=== PATIENT | female | born 2000 | race Caucasian/White ===

== ENCOUNTER 2024-05-12 10:28 | Emergency (ER) | payer OTHER ==
--- NOTE | 2024-05-12 10:46 | ED ---
Nausea/Vomiting/Diarrhea HPI - General Chief complaint: Nausea/Vomiting/Diarrhea Stated complaint: Vomiting-Preg. unsure how far Time Seen by Provider: 05/12/24 10:40 Source: patient, RN notes reviewed Mode of arrival: ambulatory Limitations: no limitations - History of Present Illness Initial comments: This is a 23-year-old female presents emergency department chief complaint of abdominal cramping, nausea and vomiting. Patient states that she had a positive at-home test on 04/22/2024. She is through the past few weeks she has been experiencing, vomiting, fatigue, intermittent abdominal cramping. Patient states that she has not sought out medical care since the time of her at-home positive test. She denies vaginal bleeding or discharge. She denies hematemesis, dysuria, increase in urinary frequency or urgency. Patient states this is her first . States that she would not like to continue gestation for this . - Related Data Allergies Allergy/AdvReac Type Severity Reaction Status Date / Time No Known Allergies Allergy Verified 05/12/24 10:40 Review of Systems ROS Statement: Those systems with pertinent positive or pertinent negative responses have been documented in the HPI. ROS Other: All systems not noted in ROS Statement are negative. Past Medical History Past Medical History: No Reported History Past Surgical History: No Surgical Hx Reported Past Psychological History: Anxiety, Depression Smoking Status: Current every day smoker Past Alcohol Use History: None Reported Past Drug Use History: None Reported General Exam Limitations: no limitations General appearance: alert, in no apparent distress Head exam: Present: atraumatic, normocephalic, normal inspection Eye exam: Present: normal appearance, PERRL, EOMI. Absent: scleral icterus, conjunctival injection, periorbital swelling ENT exam: Present: normal exam, mucous membranes moist Neck exam: Present: normal inspection. Absent: tenderness, meningismus, lymphadenopathy Respiratory exam: Present: normal lung sounds bilaterally. Absent: respiratory distress, wheezes, rales, rhonchi, stridor Cardiovascular Exam: Present: regular rate, normal rhythm, normal heart sounds. Absent: systolic murmur, diastolic murmur, rubs, gallop, clicks GI/Abdominal exam: Present: soft, tenderness (suprapubic), normal bowel sounds. Absent: distended, guarding, rebound, rigid Extremities exam: Present: normal inspection, full ROM, normal capillary refill. Absent: tenderness, pedal edema, joint swelling, calf tenderness Back exam: Present: normal inspection Neurological exam: Present: alert, oriented X3, CN II-XII intact Psychiatric exam: Present: normal affect, normal mood Skin exam: Present: warm, dry, intact, normal color. Absent: rash Course Vital Signs 05/12/24 05/12/24 10:36 13:41 Temperature 98.2 F 97.9 F Pulse Rate 82 75 Respiratory 18 16 Rate Blood Pressure 117/78 115/58 O2 Sat by Pulse 100 99 Oximetry Medical Decision Making - Medical Decision Making Was pt. sent in by a medical professional or institution (, PA, SWEATBAND CUTTING MACHINE OPERATOR, urgent care, hospital, or retirement...) When possible be specific @ -No Did you speak to anyone other than the patient for history (EMS, parent, family, police, friend...)? What history was obtained from this source @ -No Did you review nursing and triage notes (agree or disagree)? Why? @ -I reviewed and agree with nursing and triage notes Were old charts reviewed (outside hosp., previous admission, EMS record, old EKG, old radiological studies, urgent care reports/EKG's, retirement records)? Report findings @ -No old charts were reviewed Differential Diagnosis (chest pain, altered mental status, abdominal pain women, abdominal pain men, vaginal bleeding, weakness, fever, dyspnea, syncope, headache, dizziness, GI bleed, back pain, seizure, CVA, palpatations, mental health, musculoskeletal)? @ -Differential Abdominal Pain Women: Appendicitis, Cholecystitis, diverticulosis, ischemic bowel, pancreatitis, hepat itis, UTI, gastroenteritis, AAA, incarcerated hernia, bowel obstruction, constipation, inflammatory bowel, hepatitis, peptic ulcer disease, splenic infarction, perforated viscus, vulvitis, ovarian torsion, PID, kidney stone, placenta abruption, this is not meant to be an all-inclusive list EKG interpreted by me (3pts min.). @ -none X-rays interpreted by me (1pt min.). @ -None done CT interpreted by me (1pt min.). @ -None done U/S interpreted by me (1pt. min.). @ -Transabdominal ultrasound single viable intrauterine with a heart rate of 134 bpm, estimated 6 weeks and 6 days gestation What testing was considered but not performed or refused? (CT, X-rays, U/S, l abs)? Why? @ -None What meds were considered but not given or refused? Why? @ -None Did you discuss the management of the patient with other professionals (professionals i.e. , PA, SWEATBAND CUTTING MACHINE OPERATOR, lab, RT, psych nurse, social sciences chair, dairy truck driver, teacher, staff weapons officer, rn case manager)? Give summary @ -No Was smoking cessation discussed for >3mins.? @ -No Was critical care preformed (if so, how long)? @ -No Were there social determinants of health that impacted care today? How? (Homelessness, low income, unemployed, alcoholism, drug addiction, transportation, low edu. Level, literacy, decrease access to med. care, detention, rehab)? @ -No Was there de-escalation of care discussed even if they declined (Discuss DNR or withdrawal of care, Hospice)? DNR status @ -No What co-morbidities impacted this encounter? (DM, HTN, Smoking, COPD, CAD, Cancer, CVA, ARF, Chemo, Hep., AIDS, mental health diagnosis, sleep apnea, morbid obesity)? @ -None Was patient admitted / discharged? Hospital course, mention meds given and route, prescriptions, significant lab abnormalities, going to OR and other pertinent info. @ -Discharged. 23-year-old female with a positive at-home test and abdominal cramping. On examination patient noted to have mild suprapubic abdominal cramping on palpation. She will be evaluated via laboratory studies in addition to ultrasound. Patient was provided with fluids and Tylenol as well. CBC, CMP, coagulation profile unremarkable. Quantitative hCG 78610. UA unremarkable for signs of infection, epithelial cells consistent with contamination. provided with additional information due to requested no longer to continue with this . All questions have been answered at bedside and strict return parameters discussed with the patient she verbalized understanding. Discussed with Dr. Lua Undiagnosed new problem with uncertain prognosis? @ -No Drug Therapy requiring intensive monitoring for toxicity (Heparin, Nitro, Insulin, Cardizem)? @ -No Were any procedures done? @ -No Diagnosis/symptom? @ -Abdominal pain, nausea vomiting, 6-week gestation with intrauterine . Acute, or Chronic, or Acute on Chronic? @ -acute Uncomplicated (without systemic symptoms) or Complicated (systemic symptoms)? @ -uncomplicated Side effects of treatment? @ -No Exacerbation, Progression, or Severe Exacerbation? @ -No Poses a threat to life or bodily function? How? (Chest pain, [place], [place], pneumonia, PE, COPD, DKA, ARF, appy, cholecystitis, CVA, Diverticulitis, Homicidal, Suicidal, threat to staff... and all critical care pts) @ -No - Lab Data Result diagrams: 05/12/24 11:48 05/12/24 11:48 Lab Results 05/12/24 05/12/24 05/12/24 Range/Units 11:48 11:48 11:48 WBC 7.1 (3.8-10.6) k/uL RBC 4.80 (3.80-5.40) m/uL Hgb 13.3 (11.4-16.0) gm/dL Hct 43.0 (34.0-46.0) % MCV 89.6 (80.0-100.0) fL MCH 27.8 (25.0-35.0) pg MCHC 31.0 (31.0-37.0) g/dL RDW 13.7 (11.5-15.5) % Plt Count 263 (150-450) k/uL MPV 7.9 Neutrophils % 78 % Lymphocytes % 15 % Monocytes % 6 % Eosinophils % 1 % Basophils % 1 % Neutrophils # 5.5 (1.3-7.7) k/uL Lymphocytes # 1.0 (1.0-4.8) k/uL Monocytes # 0.4 (0-1.0) k/uL Eosinophils # 0.0 (0-0.7) k/uL Basophils # 0.0 (0-0.2) k/uL PT 11.3 (10.0-12.5) sec INR 1.0 (<1.2) APTT 24.3 (22.0-30.0) sec Sodium (137-145) mmol/L Potassium (3.5-5.1) mmol/L Chloride (98-107) mmol/L Carbon Dioxide (22-30) mmol/L Anion Gap mmol/L BUN (7-17) mg/dL Creatinine (0.52-1.04) mg/dL Est GFR (CKD-EPI)AfAm (>60 ml/min/1.73 sqM) Est GFR (CKD-EPI)NonAf (>60 ml/min/1.73 sqM) Glucose (74-99) mg/dL Calcium (8.4-10.2) mg/dL Total Bilirubin (0.2-1.3) mg/dL AST (14-36) U/L ALT (4-34) U/L Alkaline Phosphatase (38-126) U/L Total Protein (6.3-8.2) g/dL Albumin (3.5-5.0) g/dL HCG, Quant mIU/mL Urine Color Yellow Urine Appearance Cloudy H (Clear) Urine pH 6.5 (5.0-8.0) Ur Specific Michael 1.028 (1.001-1.035) Urine Protein Trace H (Negative) Urine Glucose (UA) Negative (Negative) Urine Ketones Negative (Negative) Urine Blood Negative (Negative) Urine Nitrite Negative (Negative) Urine Bilirubin Negative (Negative) Urine Urobilinogen <2.0 (<2.0) mg/dL Ur Leukocyte Esterase Large H (Negative) Urine RBC 3 (0-5) /hpf Urine WBC 4 (0-5) /hpf Ur Squamous Epith Cells 22 H (0-4) /hpf Urine Bacteria Rare H (None) /hpf Urine Mucus Few H (None) /hpf 05/12/24 Range/Units 11:48 WBC (3.8-10.6) k/uL RBC (3.80-5.40) m/uL Hgb (11.4-16.0) gm/dL Hct (34.0-46.0) % MCV (80.0-100.0) fL MCH (25.0-35.0) pg MCHC (31.0-37.0) g/dL RDW (11.5-15.5) % Plt Count (150-450) k/uL MPV Neutrophils % % Lymphocytes % % Monocytes % % Eosinophils % % Basophils % % Neutrophils # (1.3-7.7) k/uL Lymphocytes # (1.0-4.8) k/uL Monocytes # (0-1.0) k/uL Eosinophils # (0-0.7) k/uL Basophils # (0-0.2) k/uL PT (10.0-12.5) sec INR (<1.2) APTT (22.0-30.0) sec Sodium 135 L (137-145) mmol/L Potassium 4.7 (3.5-5.1) mmol/L Chloride 108 H (98-107) mmol/L Carbon Dioxide 22 (22-30) mmol/L Anion Gap 5 mmol/L BUN 11 (7-17) mg/dL Creatinine 0.47 L (0.52-1.04) mg/dL Est GFR (CKD-EPI)AfAm >90 (>60 ml/min/1.73 sqM) Est GFR (CKD-EPI)NonAf >90 (>60 ml/min/1.73 sqM) Glucose 82 (74-99) mg/dL Calcium 9.7 (8.4-10.2) mg/dL Total Bilirubin 0.8 (0.2-1.3) mg/dL AST 24 (14-36) U/L ALT 11 (4-34) U/L Alkaline Phosphatase 122 (38-126) U/L Total Protein 7.2 (6.3-8.2) g/dL Albumin 4.3 (3.5-5.0) g/dL HCG, Quant 86625.9 mIU/mL Urine Color Urine Appearance (Clear) Urine pH (5.0-8.0) Ur Specific Michael (1.001-1.035) Urine Protein (Negative) Urine Glucose (UA) (Negative) Urine Ketones (Negative) Urine Blood (Negative) Urine Nitrite (Negative) Urine Bilirubin (Negative) Urine Urobilinogen (<2.0) mg/dL Ur Leukocyte Esterase (Negative) Urine RBC (0-5) /hpf Urine WBC (0-5) /hpf Ur Squamous Epith Cells (0-4) /hpf Urine Bacteria (None) /hpf Urine Mucus (None) /hpf Disposition Clinical Impression: Abdominal cramping, Nausea and vomiting during , 6 weeks gestation of Disposition: HOME SELF-CARE Condition: Good Instructions (If sedation given, give patient instructions): (ED) Additional Instructions: Return to the emergency department if your symptoms worsen or do not improve. Is patient prescribed a controlled substance at d/c from ED?: No Referrals: None,Stated [Primary Care Provider] - 1-2 days Forms: [employer] Time of Disposition: 12:59
[2024-05-12] MEDS: SODIUM CHLORIDE 0.9% 1,000 ML IV STA (11:50)
[2024-05-12] MEDS: ACETAMINOPHEN TAB 500 MG TAB PO STA (11:51)
[2024-05-12] MEDS: ONDANSETRON 4 MG/2 ML VIAL IVP STA (11:51)
[2024-05-12 12:05] LABS: Appearance,Urine Cloudy (Clear); Bacteria,Urine Rare /hpf; Bilirubin,Urine Negative (Negative); Blood,Urine Negative (Negative); Color,Urine Yellow; Glucose,Urine (UA) Negative (Negative); Ketones,Urine Negative (Negative); Leukocyte Esterase,Urine Large (Negative); Mucus,Urine Few /hpf; Nitrite,Urine Negative (Negative); PH, Urine 6.5 (5.0-8.0); Protein,Urine Trace (Negative); RBC,Urine 3 /hpf (0-5); Specific Gravity,Urine 1.028 (1.001-1.035); Squamous Epithelial Cell,Urine 22 /hpf (0-4); Urobilinogen,Urine <2.0 mg/dL (<2.0); WBC,Urine 4 /hpf (0-5)
[2024-05-12 12:18] LABS: ALT 11 U/L (4-34); AST 24 U/L (14-36); African American GFR (CKD) >90 (>60 ml/min/1.73 sqM); Albumin 4.3 g/dL (3.5-5.0); Alkaline Phosphatase 122 U/L (38-126); Anion Gap 5 mmol/L; Blood Urea Nitrogen 11 mg/dL (7-17); Calcium 9.7 mg/dL (8.4-10.2); Carbon Dioxide 22 mmol/L (22-30); Chloride 108 mmol/L (98-107); Glucose 82 mg/dL (74-99); Non-African American GFR(CKD) >90 (>60 ml/min/1.73 sqM); Potassium 4.7 mmol/L (3.5-5.1); Sodium 135 mmol/L (137-145); Total Bilirubin 0.8 mg/dL (0.2-1.3); Total Protein 7.2 g/dL (6.3-8.2)
[2024-05-12 12:19] LABS: Partial Thromboplastin Time 24.3 sec (22.0-30.0); Prothrombin Time 11.3 sec (10.0-12.5)
[2024-05-12 12:37] LABS: Basophils % (A) 1 %; Eosinophils % (A) 1 %; HGB 13.3 gm/dL (11.4-16.0); Lymphocytes % (A) 15 %; MCH 27.8 pg (25.0-35.0); MCV 89.6 fL (80.0-100.0); Mean Platelet Volume 7.9; Monocytes # (A) 0.4 k/uL (0-1.0); Monocytes % (A) 6 %; Neutrophils # (A) 5.5 k/uL (1.3-7.7); Neutrophils % (A) 78 %; Platelet Count 263 k/uL (150-450); RDW 13.7 % (11.5-15.5); WBC 7.1 k/uL (3.8-10.6)
--- NOTE | 2024-05-12 12:51 | US ---
EXAMINATION TYPE: Transabdominal DATE OF EXAM: 05/12/2024 12:36 PM COMPARISON: NONE CLINICAL INDICATION: Female, 23 years old with history of ab pain, + at home test 04/22/24; Pain since 04/22/2024. . EXAM PERFORMED: Transabdominal (TA) EXAM MEASUREMENTS: GESTATIONAL AGE / DATING Physician Established: Not yet established. Dates by LMP: Unknown per patient. Dates by First Scan: This is first scan. Dates by Current Scan for: (6 weeks/6 days) EDC: 12/30/2024 MATERNAL ANATOMY Uterus: 8.5 x 7.9 x 6.6 cm. Right Ovary: 3.4 x 1.6 x 2.2 cm Left Ovary: 3.0 x 1.8 x 1.6 cm Post CDS / Adnexa: Some fluid seen within the CDS. Presence of free fluid: Some free fluid seen. Presence of corpus luteal cyst: Not seen. Presence of subchorionic bleed: Complex area seen adjacent to the gestational sac: 1.0 x 0.8 x 0.8 cm. GESTATION / SURVEY CRL: 0.81 cm. (6 weeks/6 days) Yolk Sac (normal less than 6mm): 2.4 mm. Heart Rate: 134 bpm Rhythm: Normal IUP: Viable IUP Date of LMP: Unknown Beta HcG (if available): Not available. IMPRESSION: 1. Single viable uterine .
[2024-05-12 13:07] LABS: HCG,Quantitative Serum 43921.9 mIU/mL
[2024-05-12 13:42] VITALS: BP 115/58; PULSE 75; RESP 16; TEMP 97.9
== END 2024-05-12 13:51 | disposition home or self-care (01) ==
LOC: EDBD → EC 10:28
DX: O21.9 Vomiting of pregnancy, unspecified (principal); O26.891 Other specified pregnancy related conditions, first trimester; R10.30 Lower abdominal pain, unspecified; O99.331 Smoking (tobacco) complicating pregnancy, first trimester; F17.200 Nicotine dependence, unspecified, uncomplicated; Z3A.01 Less than 8 weeks gestation of pregnancy
CPT/HCPCS: 36415; 80053; 85025; 85610; 85730; 81001; 84702; 76801; 99284; 96374; 96361 ×2; J2405

== ENCOUNTER 2024-06-08 16:04 | Emergency (ER) | payer OTHER ==
[2024-06-08 16:10] VITALS: BP 132/77; PULSE 82; RESP 18; TEMP 99.2
[2024-06-08] MEDS: LORazepam 1 MG TAB PO STA (16:45)
--- NOTE | 2024-06-08 19:08 | US ---
EXAMINATION TYPE: US pelvic complete DATE OF EXAM: 06/08/2024 COMPARISON: 05/12/24 CLINICAL INDICATION: Female, 24 years old with history of recent . eval for retained products ; Pt took methotrexate on 05/14/24. Pt had cramping and bleeding for 1-2 weeks after. No cramping or b leeding for the past 2 weeks. TECHNIQUE: . Transabdominal sonographic images of the pelvis were acquired. Date of LMP: unknown EXAM MEASUREMENTS: Uterus: 7.6 x 6.4 x 4.4 cm Endometrial Stripe: 0.9 cm Right Ovary: not seen due to bowel Left Ovary: 3.5 x 1.6 x 2.0 cm 1. Uterus: Anteverted wnl 2. Endometrium: heterogeneous, but no hypervascularity seen 3. Right Ovary: Not seen due to bowel 4. Left Ovary: wnl 5. Bilateral Adnexa: wnl 6. Posterior cul-de-sac: Small amount of free fluid No evidence for retained products IMPRESSION: Heterogenous endometrium, no hypervascular areas to suggest retained products of conception.
--- NOTE | 2024-06-09 00:11 | ED ---
General Adult HPI - General Chief complaint: Anxiety Stated complaint: Medication request Time Seen by Provider: 06/08/24 16:28 Source: patient, RN notes reviewed, old records reviewed Mode of arrival: ambulatory Limitations: no limitations - History of Present Illness Initial comments: 24-year-old female who presents emergency department complaining of anxiety. Has a history of anxiety. Uncertain what medication she was on in the past. Does follow-up with [facility]. She states she has noticed more frequent panic attacks lately as well as stressors such as having to find a new home for dog as well as relationship issues. She is asking for some medications to help with her panic attacks. Does follow-up with [facility]. Denies any suicidal or homicidal ideations, times complaints. Denies any hallucinations. Presents for further evaluation. Also states she had recent is asking for test.Denies any vaginal discharge or bleeding. - Related Data Previous Rx's Medication Instructions Recorded LORazepam [Ativan] 0.5 mg PO BID PRN 3 Days #6 tab 06/08/24 Allergies Allergy/AdvReac Type Severity Reaction Status Date / Time No Known Allergies Allergy Verified 06/08/24 16:10 Review of Systems ROS Statement: Those systems with pertinent positive or pertinent negative responses have been documented in the HPI. Review of Systems: CONST: Endorses anxiety EYES: Denies blurry vision ENT: Denies nasal congestion C/V: Denies Chest pain RESP: Denies shortness of breath GI: Denies abdominal pain : Denies dysuria SKIN: Denies rash. MSK: Denies joint pain. NEURO: Denies headache ROS Other: All systems not noted in ROS Statement are negative. Past Medical History Past Medical History: No Reported History Past Surgical History: No Surgical Hx Reported Past Psychological History: Anxiety, Depression Smoking Status: Current every day smoker Past Alcohol Use History: None Reported Past Drug Use History: None Reported General Exam - General Exam Comments Initial Comments: General: Appears in no acute distress. HEAD: Normal with no signs of head trauma. EYES: EOMI ENT: Hearing grossly intact, normal oropharynx. RESPIRATORY: Clear breath sounds bilaterally. No wheezes, rales, or rhonchi. C/V: Regular rate and rhythm. S1 and S2 auscultated, peripheral pulses 2+ and intact throughout ABD: Abd is soft, nontender, nondistended EXT: no obvious deformity SKIN: No rashes or lesions observed on exposed skin. NEURO: Alert and oriented x 4. Limitations: no limitations Course Vital Signs 06/08/24 16:08 Temperature 99.2 F Pulse Rate 82 Respiratory 18 Rate Blood Pressure 132/77 O2 Sat by Pulse 100 Oximetry Medical Decision Making - Medical Decision Making Was pt. sent in by a medical professional or institution (, NEHEMIAS, ELECTRIC CLOCK MECHANIC, urgent care, hospital, or halfway...) When possible be specific @ -No Did you speak to anyone other than the patient for history (EMS, parent, family, police, friend...)? What history was obtained from this source @ -No Did you review nursing and triage notes (agree or disagree)? Why? @ -I reviewed and agree with nursing and triage notes Were old charts reviewed (outside hosp., previous admission, EMS record, old EKG, old radiological studies, urgent care reports/EKG's, halfway records)? Report findings @ -No old charts were reviewed Differential Diagnosis (chest pain, altered mental status, abdominal pain women, abdominal pain men, vaginal bleeding, weakness, fever, dyspnea, syncope, headache, dizziness, GI bleed, back pain, seizure, CVA, palpatations, mental health, musculoskeletal)? @ -Differential Mental Health Depression, anxiety, bipolar, psychosis, schizophrenia, borderline personality, situational depression, adjustment disorder, behavioral disorder, brain tumor, malingering, substance abuse, encephalopathy, medication reaction, dementia, hypothyroidism, degenerative neurologic disorder, lupus.... This is not meant to be all-inclusive list EKG interpreted by me (3pts min.). @ -None done X-rays interpreted by me (1pt min.). @ -None done CT interpreted by me (1pt min.). @ -None done U/S interpreted by me (1pt. min.). @ -Ultrasound reveals no retained products of conception. What testing was considered but not performed or refused? (CT, X-rays, U/S, labs)? Why? @ -None What meds were considered but not given or refused? Why? @ -None Did you discuss the management of the patient with other professionals (professionals i.e. NEHEMIAS Lopez, ELECTRIC CLOCK MECHANIC, lab, RT, psych nurse, social science manager, mobile web application developer, teacher, penal officer, case packer)? Give summary @ -No Was smoking cessation discussed for >3mins.? @ -No Was critical care preformed (if so, how long)? @ -No Were there social determinants of health that impacted care today? How? (Homelessness, low income, unemployed, alcoholism, drug addiction, transportation, low edu. Level, literacy, decrease access to med. care, mcc, rehab)? @ -No Was there de-escalation of care discussed even if they declined (Discuss DNR or withdrawal of care, Hospice)? DNR status @ -No What co-morbidities impacted this encounter? (DM, HTN, Smoking, COPD, CAD, Cancer, CVA, ARF, Chemo, Hep., AIDS, mental health diagnosis, sleep apnea, morbid obesity)? @ -None Was patient admitted / discharged? Hospital course, mention meds given and route, prescriptions, significant lab abnormalities, going to OR and other pertinent info. @ -Patient presents with anxiety as well as panic attack symptoms. Is not a danger to herself or others at this time. I did offer EPS evaluation but she instead chooses for Ativan and states she can follow-up with [facility] in the outpatient setting. She will be given a dose as well as prescription for Ativan. We will obtain a blood test as well for . She was in agreement this plan. Vital signs within acceptable limits. Quantitative hCG shows positive at 26.6. Did recommend ultrasound at this time to rule out ectopic or retained products of conception considering recent last month. She was in agreement this plan. Vital signs within acceptable limits at this time. Still remains asymptomatic otherwise. Ultrasound returned negative for retained products of conception. When I went to go reevaluate the patient and discussed the ultrasound results, patient had left AMA. Prior to her leaving, I did inform her the importance of obtaining a repeat ultrasound as well as labs in the outpatient setting to ensure the quantitative beta-hCG she goes down to 0. I did attempt to contact the patient via phone to reiterate this however she did not call back to the emergency department. Patient was discharged AGAINST MEDICAL ADVICE by nursing staff. Undiagnosed new problem with uncertain prognosis? @ -No Drug Therapy requiring intensive monitoring for toxicity (Heparin, Nitro, Insulin, Cardizem)? @ -No Were any procedures done? @ -No Diagnosis/symptom? @ -Left AGAINST MEDICAL ADVICE, is possible in the setting of recent , anxiety Acute, or Chronic, or Acute on Chronic? @ -Acute Uncomplicated (without systemic symptoms) or Complicated (systemic symptoms)? @ -Complicated Side effects of treatment? @ -No Exacerbation, Progression, or Severe Exacerbation? @ -No Poses a threat to life or bodily function? How? (Chest pain, [place], [place], pneumonia, PE, COPD, DKA, ARF, appy, cholecystitis, CVA, Diverticulitis, Homicidal, Suicidal, threat to staff... and all critical care pts) @ -Potentially, yes if continues to increase and there is no definitive IUP patient will have concerning findings for possible ectopic which can be life-threatening. - Lab Data Lab Results 06/08/24 Range/Units 16:43 HCG, Quant 26.6 mIU/mL Disposition Clinical Impression: Panic attack, Acute anxiety, Disposition: LEFT AGAINST MEDICAL ADVICE Instructions (If sedation given, give patient instructions): Generalized Anxiety Disorder (ED) Prescriptions: LORazepam [Ativan] 0.5 mg PO BID PRN 3 Days #6 tab PRN Reason: Anxiety Referrals: None,Stated [Primary Care Provider] - 1-2 days Time of Disposition: 19:08
== END 2024-06-08 19:10 | disposition left against medical advice (07) ==
LOC: EC 16:04
DX: F41.0 Panic disorder [episodic paroxysmal anxiety] (principal); F17.200 Nicotine dependence, unspecified, uncomplicated; Z53.29 Procedure and treatment not carried out because of patient's decision for other reasons
CPT/HCPCS: 36415; 76856; 84702; 99284

== ENCOUNTER → 2024-06-12 | Outpatient (CLI) | payer OTHER ==
--- NOTE | 2024-06-12 12:54 | XR ---
EXAMINATION TYPE: XR ankle complete RT DATE OF EXAM: 06/12/2024 COMPARISON: NONE HISTORY: Pain FINDINGS: Three views of the ankle demonstrate the ankle mortise to be intact and symmetric. The joint spaces are preserved. The osseous structures are intact. Soft tissue swelling laterally. IMPRESSION: 1. No definite acute fracture or dislocation, if symptoms persist follow-up study in 7 to 10 days wou ld be suggested.
== END | disposition home or self-care (01) ==
LOC: RADXRMAIN 12:26
PROVIDERS: ATTEND Nurse Practitioner Family
DX: S93.401A Sprain of unspecified ligament of right ankle, initial encounter (principal)

== ENCOUNTER 2024-06-16 10:22 | Emergency (ER) | payer OTHER ==
[2024-06-16 10:33] VITALS: RESP 18; TEMP 98
--- NOTE | 2024-06-16 10:43 | ED ---
Neck Injury/Pain HPI - General Chief Complaint: Neck Pain/Injury Stated Complaint: Neck pain Time Seen by Provider: 06/16/24 10:35 Source: patient, RN notes reviewed Mode of arrival: ambulatory Limitations: no limitations - History of Present Illness Initial Comments: This is a 24-year-old female who presents to the emergency department for neck pain and back pain. States that 5 days ago she was running down a large and steep hill. She was under the influence of marijuana at that time and ended up tripping and falling. States that she was 3 to 4 feet in the air after tripping and then landed on her back. Unsure if she hit her head. Denies any loss of consciousness. She has since been having pain to the neck and upper back, however she states that it is getting worse. She is having difficulty turning her head and neck. States that she did not sleep last night because of the pain. - Related Data Previous Rx's Medication Instructions Recorded LORazepam [Ativan] 0.5 mg PO BID PRN 3 Days #6 tab 06/08/24 Cyclobenzaprine [Flexeril] 10 mg PO TID PRN #30 tab 06/16/24 Ketorolac [Toradol] 10 mg PO Q6HR PRN #15 tab 06/16/24 Allergies Allergy/AdvReac Type Severity Reaction Status Date / Time No Known Allergies Allergy Verified 06/16/24 10:33 Review of Systems ROS Statement: Those systems with pertinent positive or pertinent negative responses have been documented in the HPI. ROS Other: All systems not noted in ROS Statement are negative. Past Medical History Past Medical History: No Reported History Additional Past Medical History / Comment(s): History of Any Multi-Drug Resistant Organisms: None Reported Past Surgical History: No Surgical Hx Reported Past Psychological History: Anxiety, Depression Smoking Status: Current every day smoker Past Alcohol Use History: None Reported Past Drug Use History: None Reported General Exam Limitations: no limitations General appearance: alert, in no apparent distress Head exam: Present: atraumatic, normocephalic, normal inspection Eye exam: Present: normal appearance, PERRL, EOMI. Absent: scleral icterus, conjunctival injection, periorbital swelling Neck exam: Present: other (Tenderness to palpation over the posterior cervical spine. Range of motion limited by pain.) Respiratory exam: Present: normal lung sounds bilaterally. Absent: respiratory distress, wheezes, rales, rhonchi, stridor Cardiovascular Exam: Present: regular rate, normal rhythm, normal heart sounds. Absent: systolic murmur, diastolic murmur, rubs, gallop, clicks Neurological exam: Present: alert, oriented X3, CN II-XII intact Psychiatric exam: Present: normal affect, normal mood Skin exam: Present: warm, dry, intact, normal color. Absent: rash Course Vital Signs 06/16/24 06/16/24 10:28 12:47 Temperature 98.0 F Pulse Rate 69 73 Respiratory 18 18 Rate Blood Pressure 144/79 121/73 O2 Sat by Pulse 100 99 Oximetry Medical Decision Making - Medical Decision Making This is a 24 year old female who presents to the emergency department for neck pain. Was pt. sent in by a medical professional or institution? @ -No Did you speak to anyone other than the patient for history? @ -No Did you review nursing and triage notes? @ -Yes, and I agree, it is accurate with regards to the patient's symptoms. Were old charts reviewed? @ -No Differential Diagnosis? @ -Differential Neck Pain: Fracture, dislocation, contusion, strain, DDD, disc herniation, this is not meant to be an all-inclusive list. EKG interpreted by me (3pts min.)? @ -Not obtained X-rays interpreted by me (1pt min.)? @ -X-ray of the thoracic spine obtained. My interpretation identifies no acute fractures. CT interpreted by me (1pt min.)? @ -Computed tomography scan of the brain and c-spine obtained. My interpretation identifies no evidence of an acute intracranial hemorrhage, skull fracture, or cervical spine fracture. U/S interpreted by me (1pt. min.)? @ -Not obtained What testing was considered but not performed? (CT, X-rays, U/S, labs)? Why? @ -None What meds were considered but not given? Why? @ -None Did you discuss the management of the patient with other professionals? @ -No Did you reconcile home meds? @ -No Was smoking cessation discussed for >3mins.? @ -No Was critical care preformed (if so, how long)? @ -No Were there social determinants of health that impacted care today? How? (Homelessness, low income, unemployed, alcoholism, drug addiction, transportation, low edu. Level, literacy, decrease access to med. care, retirement, rehab)? @ -No Was there de-escalation of care discussed even if they declined? (Discuss DNR or withdrawal of care, Hospice)? @ -No What co-morbidities impacted this encounter? (DM, HTN, Smoking, COPD, CAD, Cancer, CVA, Hep., AIDS, mental health diagnosis, sleep apnea, morbid obesity)? @ -None Was patient admitted / discharged? @ -Discharged. CT scan of the brain and C-spine revealed a prominent reversal of the normal cervical lordosis suggestive of positioning or muscle spasm. X- ray of the thoracic spine revealed no acute process. Symptoms well-controlled in the emergency department. Prescription for Toradol and Flexeril provided with dosing instructions reviewed. Patient discharged home in stable condition. Case discussed with ED attending Dr. Queen. Return precautions reviewed in depth, the patient is instructed to return to the emergency department with any new, worsening, or concerning symptoms. Patient verbalized understanding. Undiagnosed new problem with uncertain prognosis? @ -None Drug Therapy requiring intensive monitoring for toxicity (Heparin, Nitro, Insulin, Cardizem)? @ -None Were any procedures done? @ -None Diagnosis/symptom? @ -Fall, neck pain Acute, or Chronic, or Acute on Chronic? @ -Acute Uncomplicated (without systemic symptoms) or Complicated (systemic symptoms)? @ -Uncomplicated Side effects of treatment? @ -None Exacerbation, Progression, or Severe Exacerbation] @ -Not applicable Poses a threat to life or bodily function? @ -No - Radiology Data Radiology results: report reviewed, image reviewed Disposition Clinical Impression: Strain of neck muscle Disposition: HOME SELF-CARE Instructions (If sedation given, give patient instructions): Cervical Strain (ED) Additional Instructions: Return to the emergency department with any new, worsening, or concerning symptoms. Take the Toradol with Tylenol as needed for pain relief. If you choose to take the Toradol, do not take any other anti-inflammatories such as ibuprofen, take one or the other. You can take the Flexeril up to 3 times daily. Be aware that this may make you drowsy. Follow up with your primary care provider in 1-2 days. Prescriptions: Cyclobenzaprine [Flexeril] 10 mg PO TID PRN #30 tab PRN Reason: Pain Ketorolac [Toradol] 10 mg PO Q6HR PRN #15 tab PRN Reason: Pain Is patient prescribed a controlled substance at d/c from ED?: No Referrals: None,Stated [Primary Care Provider] - 1-2 days Time of Disposition: 12:24
[2024-06-16] MEDS: DEXAMETHASONE SOD PHOSPHATE 10 MG/ML 1 ML VIAL IVP STA (10:58)
[2024-06-16] MEDS: KETOROLAC 15 MG/ML 1 ML VIAL IVP STA (10:58)
[2024-06-16] MEDS: LIDOCAINE 4% PATCH TOPICAL ONE (10:59)
[2024-06-16] MEDS: ORPHENADRINE 30 MG/ML 2 ML VIAL IVP STA (10:59)
[2024-06-16] MEDS: ACETAMINOPHEN TAB 500 MG TAB PO STA (11:00)
--- NOTE | 2024-06-16 11:29 | XR ---
EXAMINATION TYPE: XR thoracic spine complete DATE OF EXAM: 06/16/2024 CLINICAL HISTORY: pain TECHNIQUE: Frontal, lateral, and swimmer's view of thoracic spine are obtained. COMPARISON: None. FINDINGS: Thoracic spine show satisfactory alignment without evidence of acute fracture or dislocatio n. Vertebral body heights are preserved. Disc spaces are well preserved. Visualized ribs are unrem arkable. IMPRESSION: No acute fracture or dislocation is seen in the thoracic spine. ICD 10 NO FRACTURE, INIT IAL EVALUATION
--- NOTE | 2024-06-16 11:49 | CT ---
EXAMINATION TYPE: CT brain [place] wo con DATE OF EXAM: 06/16/2024 COMPARISON: None HISTORY: 24-year-old female pain after tumble and fall x1 week ago CT DLP: 1275.9 mGycm Automated exposure control for dose reduction was used. Technique: Examination of the head was done in axial plane without intravenous contrast. Coronal and sagittal reconstructions performed. CT of the cervical spine was obtained in axial plane without intravenous injection of contrast mater ial. Coronal and sagittal reformatted images were obtained from the axial views for evaluation of f ractures, spinal alignment and canal. FINDINGS: Head: There is no evidence of acute intracranial hemorrhage, acute ischemic changes, mass, mass-effect, or extra-axial fluid collection. There is no effacement of cerebral sulci or basal subarachnoid cister ns. There is no hydrocephalus. There is no midline shift. Cain-white matter distinction is preserv ed. Undulating nasal septum. Paranasal sinuses and mastoid air cells well pneumatized. Orbits and globes are intact. Cervical spine: Prominent reversal of the normal cervical lordosis. No evident canal compromise by CT. The alignment of the cervical spine is normal on coronal and reformatted images. There is no cranial vertebral abno rmality. Fracture of the cervical spine is not seen. There is no evidence of focal disk herniation. T here is no central spinal canal stenosis. Sagittal and coronal reformatted images confirm above findings. COMBINED IMPRESSION: 1. No acute intracranial abnormality seen. 2. No acute fracture or malalignment of the cervical spine. Prominent reversal of the normal cervical lordosis could be positional or due to muscle spasm.
[2024-06-16] MEDS: HYDROmorphone 0.5 MG/0.5 ML SYRINGE IVP STA (12:08)
[2024-06-16] MEDS: ACET/COD 300 MG/30 MG STARTER PACK 6 TAB BTL PO STA (12:12)
[2024-06-16] MEDS: LORazepam 2 MG/ML INJ IV STA (12:38)
[2024-06-16 12:48] VITALS: BP 121/73; PULSE 73
== END 2024-06-16 12:48 | disposition home or self-care (01) ==
LOC: EC 10:22
DX: S16.1XXA Strain of muscle, fascia and tendon at neck level, initial encounter (principal); F17.200 Nicotine dependence, unspecified, uncomplicated; W01.0XXA Fall on same level from slipping, tripping and stumbling without subsequent striking against object, initial encounter; Y92.828 Other wilderness area as the place of occurrence of the external cause; Y93.02 Activity, running
CPT/HCPCS: 99284; 96374; 96375 ×4; 72072; 72125; 70450; J2060; J1100; J2360; J1885; J1170

== ENCOUNTER 2024-07-05 15:51 | Emergency (ER) | payer OTHER ==
[2024-07-05] MEDS ORDERED: SODIUM CHLORIDE 0.9% 1,000 ML BAG ONE (17:00)
[2024-07-05] MEDS ORDERED: ACETAMINOPHEN TAB 325 MG TAB ONE (18:08)
--- NOTE | 2024-08-05 18:19 | US ---
Patient Lizbeth Lua ID [id number] Order # EXAMINATION TYPE: US pelvic complete DATE OF EXAM: 07/05/2024 COMPARISON: No comparison available on downtime PACS. CLINICAL INDICATION: Bleeding after intercourse TECHNIQUE: Transvaginal (TV). Date of LMP: Unknown EXAM MEASUREMENTS: Uterus: 5.5 x 7.3 x 4.2 cm Endometrial Stripe: 0.63 cm Right Ovary: 3.5 x 1.8 x 1.7 cm Left Ovary: 1.3 x 2.1 x 1.2 cm 1. Uterus: Normal 2. Endometrium: Normal 3. Right Ovary: Follicles 4. Left Ovary: Follicles Spectral, color and waveform doppler imaging shows good arterial within the lateral ovaries. Bilate ral Venous flow is unable to be obtained at this time. 5. Bilateral Adnexa: Unremarkable 6. Posterior cul-de-sac: No fluid IMPRESSION: 1 unremarkable pelvic ultrasound
[2024-08-15 10:45] LABS: C. trachomatis,PCR Negative (Negative); N. gonorrhoeae,PCR Negative (Negative)
== END 2024-07-05 19:00 | disposition left against medical advice (07) ==
LOC: EC 15:51
DX: N93.8 Other specified abnormal uterine and vaginal bleeding (principal)
CPT/HCPCS: 76830; 87491; 87591; 93975; 99284

== ENCOUNTER 2024-08-18 16:06 | Emergency (ER) | payer OTHER ==
[2024-08-18 17:23] VITALS: RESP 18
--- NOTE | 2024-08-18 17:52 | ED ---
SOB HPI - General Chief Complaint: Shortness of Breath Stated Complaint: chest pain Time Seen by Provider: 08/18/24 17:51 Source: patient, family, RN notes reviewed Mode of arrival: ambulatory Limitations: no limitations - History of Present Illness Initial Comments: 24-year-old female presenting to the ER with chief complaint of chest pain 3 hours ago. Patient states she was at work at [employer] when she suddenly began to feel a burning sensation in the center of her chest with associated shortness of breath. Patient states she has had same symptoms symptoms before when she was having a panic attack. Denies precipitating event or stress. Patient does take Zoloft daily for generalized anxiety disorder, she does see a therapist regularly but states she has canceled several appointments lately. States she is no longer having the chest pain but continues to feel anxious. Denies any cardiac or pulmonary history. - Related Data Previous Rx's Medication Instructions Recorded LORazepam [Ativan] 0.5 mg PO BID PRN 3 Days #6 tab 06/08/24 Cyclobenzaprine [Flexeril] 10 mg PO TID PRN #30 tab 06/16/24 Ketorolac [Toradol] 10 mg PO Q6HR PRN #15 tab 06/16/24 Allergies Allergy/AdvReac Type Severity Reaction Status Date / Time No Known Allergies Allergy Verified 06/16/24 10:33 Review of Systems ROS Statement: Those systems with pertinent positive or pertinent negative responses have been documented in the HPI. ROS Other: All systems not noted in ROS Statement are negative. Past Medical History Past Medical History: No Reported History Additional Past Medical History / Comment(s): History of Any Multi-Drug Resistant Organisms: None Reported Past Surgical History: No Surgical Hx Reported Past Psychological History: Anxiety, Depression Smoking Status: Current every day smoker Past Alcohol Use History: None Reported Past Drug Use History: None Reported General Exam Limitations: no limitations General appearance: alert, in no apparent distress Head exam: Present: atraumatic, normocephalic, normal inspection Eye exam: Present: normal appearance, PERRL, EOMI. Absent: scleral icterus, conjunctival injection, periorbital swelling ENT exam: Present: normal exam, mucous membranes moist Respiratory exam: Present: normal lung sounds bilaterally. Absent: respiratory distress, wheezes, rales, rhonchi, stridor Cardiovascular Exam: Present: regular rate, normal rhythm, normal heart sounds. Absent: systolic murmur, diastolic murmur, rubs, gallop, clicks Neurological exam: Present: alert, oriented X3 Psychiatric exam: Present: normal affect, normal mood Skin exam: Present: warm, dry, intact, normal color. Absent: rash Course Vital Signs 08/18/24 08/18/24 08/18/24 16:14 17:20 18:59 Temperature 97.8 F 98.0 F Pulse Rate 81 88 76 Respiratory 20 18 18 Rate Blood Pressure 134/63 135/74 126/76 O2 Sat by Pulse 99 94 L 95 Oximetry Medical Decision Making - Medical Decision Making Was pt. sent in by a medical professional or institution (, PA, FIELD ADVISOR, urgent care, hospital, or care home...) When possible be specific @ -No Did you speak to anyone other than the patient for history (EMS, parent, family, police, friend...)? What history was obtained from this source @ -No Did you review nursing and triage notes (agree or disagree)? Why? @ -I reviewed and agree with nursing and triage notes Were old charts reviewed (outside hosp., previous admission, EMS record, old EKG, old radiological studies, urgent care reports/EKG's, care home records)? Report findings @ -No old charts were reviewed Differential Diagnosis (chest pain, altered mental status, abdominal pain women, abdominal pain men, vaginal bleeding, weakness, fever, dyspnea, syncope, headache, dizziness, GI bleed, back pain, seizure, CVA, palpatations, mental health, musculoskeletal)? @ -Differential Chest Pain: Anxiety, stable Angina, Unstable Angina, STEMI, NSTEMI Aortic Dissection, Pneumothorax, Musculoskeletal, Esophageal Spasm GERD, Cholecystitis, Pancreatitis, Zoster, this is not meant to be an all-inclusive list. EKG interpreted by me (3pts min.). @ -None X-rays interpreted by me (1pt min.). @ -None done CT interpreted by me (1pt min.). @ -None done U/S interpreted by me (1pt. min.). @ -None done What testing was considered but not performed or refused? (CT, X-rays, U/S, labs)? Why? @ -Recommended EKG, chest x-ray, and lab work however patient declined What meds were considered but not given or refused? Why? @ -None Did you discuss the management of the patient with other professionals (professionals i.e. DrJanie, PA, FIELD ADVISOR, lab, RT, psych nurse, oncology social worker, mechanic recovery, te acher, credit or loans officer, case manager specialist)? Give summary @ -No Was smoking cessation discussed for >3mins.? @ -No Was critical care preformed (if so, how long)? @ -No Were there social determinants of health that impacted care today? How? (Homelessness, low income, unemployed, alcoholism, drug addiction, transportation, low edu. Level, literacy, decrease access to med. care, skilled nursing, rehab)? @ -No Was there de-escalation of care discussed even if they declined (Discuss DNR or withdrawal of care, Hospice)? DNR status @ -No What co-morbidities impacted this encounter? (DM, HTN, Smoking, COPD, CAD, Cancer, CVA, ARF, Chemo, Hep., AIDS, mental health diagnosis, sleep apnea, morbid obesity)? @ -None Was patient admitted / discharged? Hospital course, mention meds given and route, prescriptions, significant lab abnormalities, going to OR and other pertinent info. @ -Discharged. This is a 24-year-old female with history of anxiety presenting with episode of chest pain earlier today with shortness of breath. Patient currently states chest pain has resolved however still feels anxious. Denies any cardiac or pulmonary history. Vital signs are within acceptable limits, no acute distress. Patient was given Ativan for likely anxiety. Recommended EKG, chest x-ray, and lab work however patient declined. Upon reevaluation, patient states symptoms have improved. Discussed likely diagnosis of anxiety. Strict return precautions discussed. Advised close follow-up with PCP, patient agreeable to plan. Case was discussed with my ED attending Dr. Howe. Patient stable at time of discharge. Undiagnosed new problem with uncertain prognosis? @ -No Drug Therapy requiring intensive monitoring for toxicity (Heparin, Nitro, Insulin, Cardizem)? @ -No Were any procedures done? @ -No Diagnosis/symptom? @ -Anxiety, chest pain Acute, or Chronic, or Acute on Chronic? @ -Acute Uncomplicated (without systemic symptoms) or Complicated (systemic symptoms)? @ -Uncomplicated Side effects of treatment? @ -No Exacerbation, Progression, or Severe Exacerbation? @ -No Poses a threat to life or bodily function? How? (Chest pain, [place], [place], pneumonia, PE, COPD, DKA, ARF, appy, cholecystitis, CVA, Diverticulitis, Homicidal, Suicidal, threat to staff... and all critical care pts) @ -Unlikely Disposition Clinical Impression: Anxiety Disposition: HOME SELF-CARE Condition: Stable Instructions (If sedation given, give patient instructions): Anxiety (ED) Additional Instructions: Please return to the Emergency Department if symptoms worsen or any other concerns. Is patient prescribed a controlled substance at d/c from ED?: No Referrals: Elpidio Feliciano MD [Primary Care Provider] - 1-2 days Time of Disposition: 18:53
[2024-08-18] MEDS: LORazepam 2 MG/ML INJ IM STA (18:09)
[2024-08-18 19:01] VITALS: BP 126/76; PULSE 76; TEMP 98
== END 2024-08-18 19:01 | disposition home or self-care (01) ==
LOC: EC 16:06
DX: R07.9 Chest pain, unspecified
CPT/HCPCS: 96372; 99284

== ENCOUNTER → 2024-10-31 | Outpatient (CLI) | payer OTHER ==
--- NOTE | 2024-10-31 16:05 | US ---
EXAMINATION TYPE: US kidneys/renal and bladder DATE OF EXAM: 10/31/2024 COMPARISON: NONE CLINICAL INDICATION: Female, 24 years old with history of R10.2 PELVIC PAIN N93.2 ABN BLEED R31.9 HEM ATURIA; flank pain, patient states no bleeding TECHNIQUE: Grayscale imaging of the bilateral kidneys and urinary bladder: FINDINGS: EXAM MEASUREMENTS: Right Kidney: 10.2 x 3.8 x 4.2 cm Left Kidney: 10.5 x 3.6 x 5.0 cm Right Kidney: No hydronephrosis or masses seen Left Kidney: No hydronephrosis or masses seen Bladder: wnl There is no evidence for hydronephrosis at this point in time. No nephrolithiasis is seen. No hien s are identified. The urinary bladder is anechoic. IMPRESSION: No evidence for acute process. [facility] Hernade[facility], , 10/31/2024 4:03 PM
--- NOTE | 2024-10-31 16:07 | US ---
EXAMINATION TYPE: US transvaginal DATE OF EXAM: 10/31/2024 COMPARISON: NONE CLINICAL INDICATION: Female, 24 years old with history of R10.2 PELVIC PAIN N93.2 ABN BLEED R31.9 HEM ATURIA; patients states bleeding after intercourse, methotrexate for AB in April 2024, on depo now, wi ll have 1 day of bleeding on and off. TECHNIQUE: TV. Transvaginal sonographic images FINDINGS: Date of LMP: unknown EXAM MEASUREMENTS: Uterus: 6.5 x 4.8 x 4.0 cm Endometrial Stripe: 0.7 cm Right Ovary: 3.1 x 1.8 x 1.4 cm Left Ovary: 2.7 x 1.4 x 1.0 cm 1. Uterus: Anteverted wnl 2. Endometrium: fluid level seen within 3. Right Ovary: wnl 4. Left Ovary: wnl 5. Bilateral Adnexa: wnl 6. Posterior cul-de-sac: wnl IMPRESSION: Small amount of fluid likely blood product within the endometrium. No acute processes definitively vi sualized. [facility], , 10/31/2024 4:05 PM
== END | disposition home or self-care (01) ==
LOC: RADUSWWP 15:17
PROVIDERS: ATTEND Family Medicine
DX: N85.8 Other specified noninflammatory disorders of uterus (principal); R10.2 Pelvic and perineal pain; R31.9 Hematuria, unspecified
CPT/HCPCS: 76770; 76830

== ENCOUNTER 2025-04-27 06:24 | Day surgery (SDC) | payer OTHER ==
[2025-04-24 08:59] VITALS: BMI 22.8
[~2025-04-27 06:24] MED LIST: DOXYCYCLINE 100 MG CAP PO PRN
[2025-04-27] MEDS ORDERED: droPERidol 2.5 MG/ML VIAL IVP PRN (06:37)
[2025-04-27] MEDS ORDERED: LIDOCAINE 1% (10MG/ML) FOR IV START INTRADERMA PRN (06:37)
[2025-04-27] MEDS: IV FLUID CONTINUATION 1,000 ML IV ONE ×2 (07:05→08:47)
[2025-04-27 07:16] VITALS: RESP 16; TEMP 97
[2025-04-27] MEDS: DEXAMETHASONE SOD PHOSPHATE 4 MG/ML 1 ML VIAL IV ONE (07:23)
[2025-04-27] MEDS: DOXYCYCLINE 100 MG TABLET PO PRN (07:23)
[2025-04-27] MEDS: FAMOTIDINE 20 MG/2 ML VIAL IV STA (07:24)
[2025-04-27] MEDS: ONDANSETRON 4 MG/2 ML VIAL IVP ONE (07:24)
[2025-04-27] MEDS: LACTATED RINGERS 1,000 ML IV SCH (07:25)
[2025-04-27] MEDS ORDERED: MIDAZOLAM 2 MG/2 ML VIAL ONE (07:29)
[2025-04-27] MEDS ORDERED: PROPOFOL 10 MG/ML 20 ML VIAL IV ONE (07:29)
[2025-04-27] MEDS ORDERED: KETOROLAC 15 MG/ML 1 ML VIAL ONE (07:29)
[2025-04-27] MEDS ORDERED: fentaNYL (PF) 50 MCG/ML 2 ML AMP ONE (07:29)
[2025-04-27] MEDS ORDERED: LIDOCAINE 1% INJ 10MG/ML (20 ML MDV) ONE (07:29)
[2025-04-27] MEDS: LACTATED RINGERS 1,000 ML IV ONE (07:34)
[2025-04-27 07:36] LABS: Basophils # (A) 0.04 10*3/uL (0.00-0.10); Basophils % (A) 0.6 %; Eosinophils # (A) 0.17 10*3/uL (0.04-0.35); Eosinophils % (A) 2.7 %; HCT 38.6 % (37.2-46.3); HGB 12.6 g/dL (12.0-15.0); Lymphocytes # (A) 1.87 10*3/uL (0.90-5.00); Lymphocytes % (A) 29.4 %; MCH 27.6 pg (27.0-32.0); MCHC 32.6 g/dL (32.0-37.0); MCV 84.6 fL (80.0-97.0); Mean Platelet Volume 10.4 fL (9.5-12.2); Monocytes # (A) 0.57 10*3/uL (0.20-1.00); Monocytes % (A) 8.9 %; Neutrophils % (A) 58.1 %; Platelet Count 284 10*3/uL (140-440); RBC 4.56 10*6/uL (4.10-5.20); RDW 13.4 % (11.5-14.5); WBC 6.37 10*3/uL (4.50-10.00)
--- NOTE | 2025-04-27 08:03 | P.OP ---
Date of Procedure: 04/27/25 Preoperative Diagnosis: 1. 6 week missed Postoperative Diagnosis: Same Procedure(s) Performed: Suction D&C Implants: None Anesthesia: LISBETH Surgeon: Sola Cooper Estimated Blood Loss (ml): 100 IV fluids (ml): 400 Urine output (ml): 100 Pathology: other (products of conception) Condition: stable Disposition: same day Indications for Procedure: Ms. Lua is a 24 year old with 6 week missed presenting for suction D&C. Risks of bleeding, infection, damage to surrounding structures, and uterine perforation are discussed with the patient. She understands these risks and desires to proceed. All questions answered. Operative Findings: Moderate amount of products of conception removed Description of Procedure: The patient was taken to the operating room where a general anesthetic was administered. She was then positioned in the dorsal lithotomy position and prepped and draped in the normal sterile fashion. Once the anesthetic was found to be adequate, a bimanual exam was performed under anesthetic. Next, a weighted speculum was placed in the vagina. The anterior lip of cervix was grasped with the tenaculum and dilated to accomodate the suction curette. An 8mm suction curette was connected to the suction and was placed in the cervix and a suction curettage was performed. Two passes were made with the suction curettage. Next, a sharp curettage was performed obtaining a small amount of tissue and this was followed by third suction curettage. After the procedure, the tenaculum was removed. The cervix was hemostatic. The weighted speculum was removed. After the procedure, a second bimanual exam was performed and the patient's uterus had significantly decreased in size.The patient was taken from the operating room in stable condition after she was cleaned. She will be discharged home today and will follow up in the office in 2 weeks.
[2025-04-27] MEDS: HYDROmorphone 0.5 MG/0.5 ML SYRINGE IVP PRN (08:22)
[2025-04-27 08:57] VITALS: BP 103/71; PULSE 75
[2025-04-27] MEDS: SCOPOLAMINE 1 MG/72 HR PATCH TRANSDERM ONE (09:04)
[2025-04-27] MEDS: ACETAMINOPHEN TAB 325 MG TAB PO STA (09:06)
== END 2025-04-27 09:42 | disposition home or self-care (01) ==
LOC: OR 06:24
PROVIDERS: ATTEND Obstetrics & Gynecology
DX: O02.1 Missed abortion (principal)
CPT/HCPCS: 86900; 86901; 88305; 85025; 86850; 59820; J2250; J1100; J2405; J2003; J3010; J1885; J2704; J1171; J1308